=== PATIENT | male | born 1975 | race Caucasian/White ===

== ENCOUNTER 2017-07-27 19:25 | Inpatient (IN) | payer OTHER ==
[2017-07-27 21:44] LABS: Basophils # (Auto) 0.1 K/mm3 (0.0-0.1); Basophils % (Auto) 0.6 % (0.0-1.8); Eosinophils # (Auto) 0.9 K/mm3 (0.0-0.4); Eosinophils % (Auto) 7.7 % (0.0-4.3); Hemoglobin 14.2 gm/dl (11.8-15.2); Lymphocytes # (Auto) 1.6 K/mm3 (1.2-5.4); Mean Corpuscular HGB Conc 33 % (32-34); Mean Corpuscular Hemoglobin 28 pg (28-32); Mean Corpuscular Volume 85 fl (84-94); Monocytes # (Auto) 0.7 K/mm3 (0.0-0.8); Monocytes % (Auto) 6.2 % (0.0-7.3); Platelet Count 293 K/mm3 (140-440); Red Blood Count 5.09 M/mm3 (3.65-5.03); Red Cell Distribution Width 12.9 % (13.2-15.2)
[2017-07-27 22:03] LABS: Alanine Aminotransferase 22 units/L (7-56); Albumin 3.4 g/dL (3.9-5); BUN/Creatinine Ratio 40; Blood Urea Nitrogen 24 mg/dL (9-20); Hemolysis Index 41
--- NOTE | 2017-07-27 23:30 | XRay Report ---
FINAL REPORT PROCEDURE: XR FOOT 3+V RT TECHNIQUE: RIGHT foot radiographs, AP, lateral, and oblique views. CPT 39519 HISTORY: Diabetic wound. COMPARISON: No prior studies are available for comparison. FINDINGS: Fracture (s) and/or Dislocation(s): Possible mild irregularity about the distal fibula, incompletely evaluated. Alignment: Normal . Joint space(s): Lytic areas are seen in the distal phalanx of the 1st toe. Subtle irregularity and lucency about the distal phalanx of the 2nd toe. Lytic changes with widening of the joint space and irregularity seen in the distal 2nd metatarsal and the 2nd metatarsophalangeal joint. Small lytic/erosive changes about the distal phalanx of the 5th toe about the distal interphalangeal joint. Periostitis about the 2nd metatarsal. Subtle periostitis about 3rd and 4th metatarsals. Irregularity and destructive changes of the proximal and middle phalanx of the 3rd toe. There also more focal osteopenia and possible lucency about the distal phalanx of the 3rd toe. Mild diffuse narrowing of the distal interphalangeal joints. Mild narrowing of the 1st metatarsal phalangeal joint. Narrowing of the talonavicular joint. Accessory ossicle about the cuboid. Os trigonum. Soft tissues: Diffuse soft tissue swelling, particularly about 3rd toe. Subtle soft tissue irregularity in this region. Bone mineralization: Normal . Foreign bodies: None . Calcaneal spurring: Plantar and calcaneal spurs. IMPRESSION: Irregularity in destructive changes of the proximal phalanx of the 3rd toe with moderate overlying soft tissue swelling and possible ulceration, concerning for osteomyelitis and cellulitis. Other areas of lytic changes and irregularity about the 1st, 2nd, and 5th toes with associated periostitis of the 2nd-4th metatarsals. Possible associated age indeterminate posttraumatic change of the 2nd metatarsal. Consider infectious/inflammatory process, including arthropathy such as gout or other erosive/proliferative arthropathy. However, cannot exclude destructive process such as osteomyelitis. Consider MRI for further characterization if there is continued clinical concern and if patient has no contraindication to MRI. Possible mild irregularity of the distal fibula, consider correlation with ankle radiographs.
[2017-07-28] MEDS ORDERED: TYLENOL PO ONE (02:51)
--- NOTE | 2017-07-28 02:51 | Emergency Department Report ---
HPI - General Chief Complaint: Wound/Laceration Time Seen by Provider: 07/28/17 01:19 - HPI HPI: 42-year-old male presents to the emergency department with complaint of swelling to the right foot, an ulcerating wound towards the right third toe and some signs of an abscess to the bottom of the foot. Patient says that this all started about one week ago when he had some dry skin on his toe any stride peeling or scraping off. He has a history of diabetes. He presents with a foot dressing intact but is losing some blood. He says there is mild to moderate discomfort. He presents with a low-grade fever and says that he has had some intermittent chills. He does not have a primary care physician. He is a tobacco smoker. He has not taken anything for his symptoms prior to presentation. ED Past Medical Hx - Past Medical History Previous Medical History?: Yes Hx Diabetes: Yes - Surgical History Past Surgical History?: No - Social History Smoking Status: Current Every Day Smoker Substance Use Type: Alcohol, Other ED Review of Systems ROS: Stated complaint: SWELLING AND PAIN IN RIGHT FOOT Other details as noted in HPI Comment: All other systems reviewed and negative Constitutional: chills, fever Eyes: denies: eye pain, eye discharge, vision change ENT: denies: ear pain, throat pain Respiratory: denies: cough, shortness of breath, wheezing Cardiovascular: denies: chest pain, palpitations Gastrointestinal: denies: abdominal pain, nausea, diarrhea Genitourinary: denies: urgency, dysuria Musculoskeletal: joint swelling, arthralgia Skin: lesions, change in color Neurological: denies: headache, numbness Physical Exam - Physical Exam Vital Signs: Vital Signs 07/27/17 07/27/17 07/28/17 20:16 21:12 02:22 Temperature 100.2 F H 100.2 F H Pulse Rate 77 83 Respiratory 16 16 Rate Blood Pressure 126/83 126/83 Blood Pressure [Left] O2 Sat by Pulse 98 98 96 Oximetry 07/28/17 07/28/17 02:30 02:36 Temperature 99.4 F Pulse Rate 76 Respiratory 16 Rate Blood Pressure 124/63 Blood Pressure 114/62 [Left] O2 Sat by Pulse 92 97 Oximetry Physical Exam: GENERAL: The patient is well-developed well-nourished. HENT: Normocephalic. Atraumatic. Patient has moist mucous membranes. EYES: Extraocular motions are intact. Pupils equal reactive to light bilaterally. NECK: Supple. Trachea is midline. CHEST/LUNGS: Clear to auscultation. There is no respiratory distress noted. HEART/CARDIOVASCULAR: Regular. There is no tachycardia. There is no murmur. ABDOMEN: Abdomen is soft, nontender. Patient has normal bowel sounds. There is no abdominal distention. SKIN: Skin is warm and dry. There is moderate nonpitting swelling to the dorsum of the right foot as well as toes. There is some erythema to the second and third digits of the right foot. There is a stage II ulceration seen towards the plantar portion of the third digit with some mild venous oozing. The ball of the foot displays some light coloring to the skin and some fluctuance concerning for an abscess. NEURO: The patient is awake, alert, and oriented. The patient is cooperative. The patient has no focal neurologic deficits. The patient has normal speech. MUSCULOSKELETAL: There is some mild tenderness to palpation regarding the right foot and toes with patient appears to have a cellulitis and some ulceration. There is a palpable dorsalis pedis pulse. There is no limitation range of motion. ED Course Vital Signs 07/27/17 07/27/17 07/28/17 20:16 21:12 02:22 Temperature 100.2 F H 100.2 F H Pulse Rate 77 83 Respiratory 16 16 Rate Blood Pressure 126/83 126/83 Blood Pressure [Left] O2 Sat by Pulse 98 98 96 Oximetry 07/28/17 07/28/17 02:30 02:36 Temperature 99.4 F Pulse Rate 76 Respiratory 16 Rate Blood Pressure 124/63 Blood Pressure 114/62 [Left] O2 Sat by Pulse 92 97 Oximetry ED Medical Decision Making - Lab Data Result diagrams: 07/27/17 21:26 07/27/17 21:26 - Radiology Data Radiology results: report reviewed, image reviewed PROCEDURE: XR FOOT 3+V RT TECHNIQUE: RIGHT foot radiographs, AP, lateral, and oblique views. CPT 61738 HISTORY: Diabetic wound. COMPARISON: No prior studies are available for comparison. FINDINGS: Fracture (s) and/or Dislocation(s): Possible mild irregularity about the distal fibula, incompletely evaluated. Alignment: Normal . Joint space(s): Lytic areas are seen in the distal phalanx of the 1st toe. Subtle irregularity and lucency about the distal phalanx of the 2nd toe. Lytic changes with widening of the joint space and irregularity seen in the distal 2nd metatarsal and the 2nd metatarsophalangeal joint. Small lytic/erosive changes about the distal phalanx of the 5th toe about the distal interphalangeal joint. Periostitis about the 2nd metatarsal. Subtle periostitis about 3rd and 4th metatarsals. Irregularity and destructive changes of the proximal and middle phalanx of the 3rd toe. There also more focal osteopenia and possible lucency about the distal phalanx of the 3rd toe. Mild diffuse narrowing of the distal interphalangeal joints. Mild narrowing of the 1st metatarsal phalangeal joint. Narrowing of the talonavicular joint. Accessory ossicle about the cuboid. Os trigonum. Soft tissues: Diffuse soft tissue swelling, particularly about 3rd toe. Subtle soft tissue irregularity in this region. Bone mineralization: Normal . Foreign bodies: None . Calcaneal spurring: Plantar and calcaneal spurs. IMPRESSION: Irregularity in destructive changes of the proximal phalanx of the 3rd toe with moderate overlying soft tissue swelling and possible ulceration, concerning for osteomyelitis and cellulitis. Other areas of lytic changes and irregularity about the 1st, 2nd, and 5th toes with associated periostitis of the 2nd-4th metatarsals. Possible associated age indeterminate posttraumatic change of the 2nd metatarsal. Consider infectious/inflammatory process, including arthropathy such as gout or other erosive/proliferative arthropathy. However, cannot exclude destructive process such as osteomyelitis. Consider MRI for further characterization if there is continued clinical concern and if patient has no contraindication to MRI. Possible mild irregularity of the distal fibula, consider correlation with ankle radiographs. Transcribed By: TRINA Dictated By: ZBIGNIEW OCASIO MD Electronically Authenticated By: ZBIGNIEW OCASIO MD Signed Date/Time: 07/27/17 3237 EXAM: CT LOWER EXTREMITY RT W CON HISTORY: right foot abscess TECHNIQUE: Routine axial imaging was obtained of the right foot without IV contrast with sagittal and coronal reconstructions. FINDINGS: There are osteolytic destructive changes involving most of the proximal phalanx of the 3rd toe and much of the middle phalanx as well. There is diffuse soft tissue swelling and gas in the soft tissues compatible with osteomyelitis and severe infection. Additional erosive changes are seen involving the bones of the 2nd toe as well as the distal and proximal phalanx of the great toe. Sclerotic changes seen at the level of the distal phalanx of the 5th toe also. There is extensive sclerotic changes with periosteal reaction and thickening involving the shaft of the 2nd metatarsal with arthritic changes of the 2nd metatarsal phalangeal joint. The midfoot does not show any acute changes. There are spurs along the posterior and plantar margin of the calcaneus. The soft tissues overall reveal generalized edema without focal abscess. IMPRESSION: Generalized edema around the foot suggesting cellulitis. No evidence of soft tissue abscess otherwise. Extensive osteomyelitis changes with cellulitis involving the entire 3rd toe as described. Additional cortical changes involving 1st, 2nd, and 5th toes as described. How much of this is on acute versus chronic basis is uncertain. Sclerotic changes involving much of the 2nd metatarsal with destructive changes of the 2nd metatarsophalangeal joint. How much of these findings are related to acute versus chronic osteomyelitis is uncertain. MRI of the foot is recommended for better evaluation for the extent of marrow edema. Calcaneal spurs noted. Transcribed By: ARACELI Dictated By: GABBY CARBALLO MD Electronically Authenticated By: GABBY CARBALLO MD Signed Date/Time: 07/28/17 5987 - Medical Decision Making Patient presents with some swelling, bleeding from and signs of infection to the right foot and middle toes. The patient is diabetic and a tobacco smoker. He presents with a low-grade fever. Labs show a mild leukocytosis of 13,000. X -ray showed some concern for cellulitis and/or osteomyelitis. A CT scan was done with IV contrast as I had concern for a plantar abscess as well, but there was no abscess found. However it does appear that there is osteomyelitis of the third toe and some generalized cellulitis of the feet and toes. Patient was started on vancomycin and Levaquin and will be admitted to the hospital for further evaluation and treatment and was accepted for admission by the hospitalist, Dr. White. - Differential Diagnosis cellulitis, osteomyelitis, abscess, venous stasis Critical Care Time: No Critical care attestation.: If time is entered above; I have spent that time in minutes in the direct care of this critically ill patient, excluding procedure time. ED Disposition Clinical Impression: Osteomyelitis of toe of right foot, Cellulitis of right foot Diabetic foot ulcer Qualifiers: Diabetic foot ulcer location: unspecified part of foot Diabetes mellitus type: type 1 Laterality: right Non-pressure ulcer stage: unspecified non-pressure ulcer stage Qualified Code(s): E10.621 - Type 1 diabetes mellitus with foot ulcer; L97.519 - Non-pressure chronic ulcer of other part of right foot with unspecified severity Disposition: OP ADMIT IP TO THIS HOSP Is pt being admited?: Yes Condition: Fair Time of Disposition: 07:14
[2017-07-28] MEDS ORDERED: VANCOMYCIN/NS 1 GM/250 ML 1 GM/250 ML BAG IV SCH (03:00)
--- NOTE | 2017-07-28 03:30 | Cat Scan Report ---
FINAL REPORT EXAM: CT LOWER EXTREMITY RT W CON HISTORY: right foot abscess TECHNIQUE: Routine axial imaging was obtained of the right foot without IV contrast with sagittal and coronal reconstructions. FINDINGS: There are osteolytic destructive changes involving most of the proximal phalanx of the 3rd toe and much of the middle phalanx as well. There is diffuse soft tissue swelling and gas in the soft tissues compatible with osteomyelitis and severe infection. Additional erosive changes are seen involving the bones of the 2nd toe as well as the distal and proximal phalanx of the great toe. Sclerotic changes seen at the level of the distal phalanx of the 5th toe also. There is extensive sclerotic changes with periosteal reaction and thickening involving the shaft of the 2nd metatarsal with arthritic changes of the 2nd metatarsal phalangeal joint. The midfoot does not show any acute changes. There are spurs along the posterior and plantar margin of the calcaneus. The soft tissues overall reveal generalized edema without focal abscess. IMPRESSION: Generalized edema around the foot suggesting cellulitis. No evidence of soft tissue abscess otherwise. Extensive osteomyelitis changes with cellulitis involving the entire 3rd toe as described. Additional cortical changes involving 1st, 2nd, and 5th toes as described. How much of this is on acute versus chronic basis is uncertain. Sclerotic changes involving much of the 2nd metatarsal with destructive changes of the 2nd metatarsophalangeal joint. How much of these findings are related to acute versus chronic osteomyelitis is uncertain. MRI of the foot is recommended for better evaluation for the extent of marrow edema. Calcaneal spurs noted.
[2017-07-28] MEDS ORDERED: LEVAQUIN 750MG/150ML 750 MG/150 ML BAG IV ONE (03:41)
[2017-07-28] MEDS ORDERED: ZOFRAN IV PRN (05:30)
[2017-07-28] MEDS: PERCOCET 5/325 PO PRN (10:57)
[2017-07-28] MEDS ORDERED: D50W (25GM) Syringe IV PRN (12:04)
[2017-07-28] MEDS ORDERED: VANCOMYCIN 1,750 MG in NACL 0.9% 500 ML 500 ML IV ONE (12:30)
[2017-07-28] MEDS ORDERED: VANCOMYCIN PHARMACY TO DOSE IV SCH (13:00)
[2017-07-28] MEDS: HumaLOG SUB-Q SCH ×3 (13:40→23:30)
[2017-07-28] MEDS: HABITROL TD PRN (13:56)
[2017-07-28] MEDS ORDERED: NACL 0.9% 500 ML 500 ML IV ONE (15:07)
--- NOTE | 2017-07-28 15:14 | History and Physical Report ---
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 Pitts is 42 yo [place] speaking man with history of tobacco dependency and type 2 DM who presents with severe constant throbbing radiation up right foot pains that started about 2 days ago. He injured the foot a couple weeks ago on concrete. He has subjective chills and fevers. He denies cp, sob or any other symptoms. He drinks one 12oz beer every other day. PMH: as hpi PSH: right hand surgery SH: tob 1ppd, etoh use, no illegal drugs FH: mother has dm htn ROS: Constitutional: + fever, malaise ENT: denies: throat or neck pain Respiratory: denies: cough, shortness of breath Cardiovascular: denies: chest pain Endocrine: denies unexplained weight loss or gain Gastrointestinal: denies: abdominal pain, nausea Genitourinary: denies: dysuria Rectal: denies no incontinence, no bleeding, no itching, no discharge Musculoskeletal: + swelling right foot, myaglia, muscle weakness Skin: right foot odor Neurological: denies: headache Hematological/Lymphatic: denies: easy bleeding or easy bruising Allergic/Immunologic: no urticaria, no allergic rhinitis, no anaphylaxis Psych: denies sadness or hopelessness, SI/HI I Medications and Allergies Allergies Allergy/AdvReac Type Severity Reaction Status Date / Time No Known Allergies Allergy Verified 07/28/17 02:16 Active Meds: Active Medications Dextrose (D50w (25gm) Syringe) 50 ml IV PRN PRN PRN Reason: Hypoglycemia Vancomycin HCl 1,500 mg/ (Sodium Chloride) 515 mls @ 333.333 mls/hr IV Q12H CHARLES Levofloxacin/Dextrose (Levaquin 750mg/150ml) 750 mg in 150 mls @ 100 mls/hr IV Q24HR CHARLES; Protocol Sodium Chloride (Nacl 0.9% 1000 Ml) 1,000 mls @ 125 mls/hr IV DIRECT CHARLES Sodium Chloride (Nacl 0.9% 500 Ml) 500 mls @ 999 mls/hr IV ONCE ONE Stop: 07/28/17 15:37 Insulin Human Lispro (Humalog) 0 unit SUB-Q ACHS CHARLES; Protocol Last Admin: 07/28/17 13:40 Dose: 1 unit Nicotine (Habitrol) 21 mg TD QDAY PRN PRN Reason: Nicotine Cravings Last Admin: 07/28/17 13:56 Dose: 21 mg Ondansetron HCl (Zofran) 4 mg IV Q4H PRN PRN Reason: N/V IF NPO AND NO IV ACCESS Oxycodone/Acetaminophen (Percocet 5/325) 1 tab PO Q6H PRN PRN Reason: Pain, Moderate (4-6) Last Admin: 07/28/17 10:57 Dose: 1 tab Vancomycin HCl (Vancomycin Pharmacy To Dose) 1 each IV PKCONSULT CHARLES; Protocol Exam - Physical Exam Narrative exam: GEN: WDWN, NAD, Awake, Alert, Orientated x 3 HEENT: NCAT, EOMI, PERRL, OP Clear NECK: supple, no adenopathy, no thyromegaly, no JVD CVS/HEART: RRR, normal S1S2, pulses present bilaterally CHEST/LUNGS: CTA B, Symmetrical chest expansion, good air entry bilaterally GI/Abdomen: soft, NTND, good bowel sounds, no guarding or rebound /Bladder: no suprapubic tenderness, no CVA or paraspinal tenderness EXT/Skin: right foot is swollen, red, erythematous to mid calf, warm and tender with multiple toes with ulceration, purulent material MSK: FROM x 4 Neuro: CN 2-12 grossly intact, no new focal deficits Psych: calm - Constitutional Vitals: Temp Pulse Resp BP Pulse Ox 97.6 F 80 18 94/53 94 07/28/17 09:26 07/28/17 09:26 07/28/17 09:26 07/28/17 09:26 07/28/17 09:16 Results - Labs CBC & Chem 7: 07/27/17 21:26 07/27/17 21:26 Labs: Abnormal lab results 07/27/17 07/27/17 07/28/17 Range/Units 21:26 21:26 09:28 WBC 11.3 H (4.5-11.0) K/mm3 RBC 5.09 H (3.65-5.03) M/mm3 RDW 12.9 L (13.2-15.2) % Eos % (Auto) 7.7 H (0.0-4.3) % Eos # 0.9 H (0.0-0.4) K/mm3 Seg Neutrophils % 71.5 H (40.0-70.0) % Seg Neutrophils # 8.1 H (1.8-7.7) K/mm3 BUN 24 H (9-20) mg/dL Creatinine 0.6 L (0.8-1.5) mg/dL Glucose 158 H (75-100) mg/dL POC Glucose 181 H (70-105) Albumin 3.4 L (3.9-5) g/dL 07/28/17 Range/Units 11:48 WBC (4.5-11.0) K/mm3 RBC (3.65-5.03) M/mm3 RDW (13.2-15.2) % Eos % (Auto) (0.0-4.3) % Eos # (0.0-0.4) K/mm3 Seg Neutrophils % (40.0-70.0) % Seg Neutrophils # (1.8-7.7) K/mm3 BUN (9-20) mg/dL Creatinine (0.8-1.5) mg/dL Glucose (75-100) mg/dL POC Glucose 162 H (70-105) Albumin (3.9-5) g/dL Assessment and Plan Mr. Pitts is 42 yo [place] speaking man with history of tobacco dependency and type 2 DM who presents with severe constant throbbing radiation up right foot pains that started about 2 days ago. He injured the foot a couple weeks ago on concrete. He has subjective chills and fevers. He denies cp, sob or any other symptoms. Temp 100.2, WBC 11.3 * 3v Right foot xray impression: Irregularity in destructive changes of the proximal phalanx of the 3rd toe with moderate overlying soft tissue swelling and possible ulceration, concerning for osteomyelitis and cellulitis. Other areas of lytic changes and irregularity about the 1st, 2nd, and 5th toes with associated periostitis of the 2nd-4th metatarsals. Possible associated age indeterminate posttraumatic change of the 2nd metatarsal. Consider infectious/ inflammatory process, including arthropathy such as gout or other erosive/ proliferative arthropathy. However, cannot exclude destructive process such as osteomyelitis. Consider MRI for further characterization if there is continued clinical concern and if patient has no contraindication to MRI. Possible mild irregularity of the distal fibula, consider correlation with ankle radiographs. * CT lower right extremity with IV contrast IMPRESSION: Generalized edema around the foot suggesting cellulitis. No evidence of soft tissue abscess otherwise. Extensive osteomyelitis changes with cellulitis involving the entire 3rd toe as described. Additional cortical changes involving 1st, 2nd, and 5th toes as described. How much of this is on acute versus chronic basis is uncertain. Sclerotic changes involving much of the 2nd metatarsal with destructive changes of the 2nd metatarsophalangeal joint. How much of these findings are related to acute versus chronic osteomyelitis is uncertain. MRI of the foot is recommended for better evaluation for the extent of marrow edema. Calcaneal spurs noted. -Acute right foot osteomyelitis: consult Ortho when they are available, treat with iv abx, get arterial doppler -Acute right foot cellulitis: consult wound care, and Infectious disease -Tobacco dependency: advised pt to stop, ordered nicotine patch -Hypotension with dehydration: stat iv fluid resuscitation bolus then nss ivf -DVT prophylaxis: sq heparin CCT 34 minutes
[2017-07-28] MEDS ORDERED: HumaLOG SUB-Q SCH (16:30)
--- NOTE | 2017-07-28 18:22 | Consultation ---
History of Present Illness - Reason for Consult Consult date: 07/28/17 right foot infection ? osteo Requesting physician: DURGA [place] - History of Present Illness 42 y/o male with history of DM and tobacco abuse; admitted on 07/27/17 due to 2 week-history of right foot edema, tenderness and ulceration on 3rd toe. Reports he injured the foot with concrete 2 weeks ago. Reports subjective fever. He was not checking his glucose at home. No PCP. In the ED, temp 100.2, HR 77, R 16, BP 126/83. WBC 11.3. Hg 14.2. Plat 293. Creat 0.6. Lactate 1.3. XR foot showed irregularity in destructive changes of the proximal phalanx of the 3rd toe with moderate overlying soft tissue swelling and possible ulceration, concerning for osteomyelitis and cellulitis. Other areas of lytic changes and irregularity about the 1st, 2nd, and 5th toes with associated periostitis of the 2nd-4th metatarsals. Possible associated age indeterminate posttraumatic change of the 2nd metatarsal. CT lower showed generalized edema around the foot suggesting cellulitis. Extensive osteomyelitis changes with cellulitis involving the entire 3rd toe as described. Additional cortical changes involving 1st, 2nd, and 5th toes as described. How much of this is on acute versus chronic basis is uncertain. Sclerotic changes involving much of the 2nd metatarsal with destructive changes of the 2nd metatarsophalangeal joint. How much of these findings are related to acute versus chronic osteomyelitis is uncertain. MRI of the foot is recommended for better evaluation for the extent of marrow edema. Calcaneal spurs noted. Micro: none Abx: levaquin vanco Medications and Allergies Allergies Allergy/AdvReac Type Severity Reaction Status Date / Time No Known Allergies Allergy Verified 07/28/17 02:16 Active Meds: Active Medications Dextrose (D50w (25gm) Syringe) 50 ml IV PRN PRN PRN Reason: Hypoglycemia Vancomycin HCl 1,500 mg/ (Sodium Chloride) 515 mls @ 333.333 mls/hr IV Q12H CHARLES Levofloxacin/Dextrose (Levaquin 750mg/150ml) 750 mg in 150 mls @ 100 mls/hr IV Q24HR CHARLES; Protocol Sodium Chloride (Nacl 0.9% 1000 Ml) 1,000 mls @ 125 mls/hr IV DIRECT CHARLES Insulin Human Lispro (Humalog) 0 unit SUB-Q ACHS CHARLES; Protocol Last Admin: 07/28/17 13:40 Dose: 1 unit Nicotine (Habitrol) 21 mg TD QDAY PRN PRN Reason: Nicotine Cravings Last Admin: 07/28/17 13:56 Dose: 21 mg Ondansetron HCl (Zofran) 4 mg IV Q4H PRN PRN Reason: N/V IF NPO AND NO IV ACCESS Oxycodone/Acetaminophen (Percocet 5/325) 1 tab PO Q6H PRN PRN Reason: Pain, Moderate (4-6) Last Admin: 07/28/17 10:57 Dose: 1 tab Vancomycin HCl (Vancomycin Pharmacy To Dose) 1 each IV PKCONSULT CHARLES; Protocol Review of Systems All systems: negative (as per HPI) Physical Examination - Physical Exam Narrative exam: Alert in NAD NC AT [place], clear OP Neck no LN Lungs CTA [place]anza CV RRR Abd soft nt Ext extensive edema, skin sloughing right 3rd toe and mid foot - Constitutional Vitals: Vital Signs Temp Pulse Resp BP Pulse Ox 97.6 F 80 18 94/53 94 07/28/17 09:26 07/28/17 09:26 07/28/17 09:26 07/28/17 09:26 07/28/17 09:16 Temperature -Last 24 Hours Temperature 97.6 F Temperature 99.4 F Temperature 100.2 F Temperature 100.2 F Results - Labs CBC & Chem 7: 07/27/17 21:26 07/27/17 21:26 Labs: Abnormal lab results 07/27/17 07/27/17 07/28/17 Range/Units 21:26 21:26 09:28 WBC 11.3 H (4.5-11.0) K/mm3 RBC 5.09 H (3.65-5.03) M/mm3 RDW 12.9 L (13.2-15.2) % Eos % (Auto) 7.7 H (0.0-4.3) % Eos # 0.9 H (0.0-0.4) K/mm3 Seg Neutrophils % 71.5 H (40.0-70.0) % Seg Neutrophils # 8.1 H (1.8-7.7) K/mm3 BUN 24 H (9-20) mg/dL Creatinine 0.6 L (0.8-1.5) mg/dL Glucose 158 H (75-100) mg/dL POC Glucose 181 H (70-105) Albumin 3.4 L (3.9-5) g/dL 07/28/17 Range/Units 11:48 WBC (4.5-11.0) K/mm3 RBC (3.65-5.03) M/mm3 RDW (13.2-15.2) % Eos % (Auto) (0.0-4.3) % Eos # (0.0-0.4) K/mm3 Seg Neutrophils % (40.0-70.0) % Seg Neutrophils # (1.8-7.7) K/mm3 BUN (9-20) mg/dL Creatinine (0.8-1.5) mg/dL Glucose (75-100) mg/dL POC Glucose 162 H (70-105) Albumin (3.9-5) g/dL Assessment and Plan Assessment: 1) Sepsis: POA with fever, leukocytosis, etio. right foot infection 2) Right diabetic foot infection with cellulitis, possible abscess and osteomyelitis 3) DM 4) Tobacco abuse -XR foot showed irregularity in destructive changes of the proximal phalanx of the 3rd toe with moderate overlying soft tissue swelling and possible ulceration, concerning for osteomyelitis and cellulitis. Other areas of lytic changes and irregularity about the 1st, 2nd, and 5th toes with associated periostitis of the 2nd-4th metatarsals. Possible associated age indeterminate posttraumatic change of the 2nd metatarsal. -CT lower showed generalized edema around the foot suggesting cellulitis. Extensive osteomyelitis changes with cellulitis involving the entire 3rd toe as described. Additional cortical changes involving 1st, 2nd, and 5th toes as described. How much of this is on acute versus chronic basis is uncertain. Sclerotic changes involving much of the 2nd metatarsal with destructive changes of the 2nd metatarsophalangeal joint. How much of these findings are related to acute versus chronic osteomyelitis is uncertain. Plan: -podiatry or ortho consult -deep wound cultures -arterial dopplers -CRP -continue vancomycin -add unasyn -stop levaquin -needs 6 weeks IV abx if not amputation Jimenez
[2017-07-28] MEDS: NACL 0.9% 1000 ML 1,000 ML IV SCH (18:49)
[2017-07-28] MEDS: UNASYN/NS 3 GM/100 ML 3 GM/100 ML BAG IV SCH ×2 (23:37→23:45)
[2017-07-29] MEDS: VANCOMYCIN 1,500 MG in NACL 0.9% 500 ML 500 ML IV SCH ×2 (01:09→12:00)
[2017-07-29] MEDS: NACL 0.9% 1000 ML 1,000 ML IV SCH ×2 (06:18→17:21)
[2017-07-29] MEDS: UNASYN/NS 3 GM/100 ML 3 GM/100 ML BAG IV SCH ×4 (06:19→23:45)
[2017-07-29] MEDS: HumaLOG SUB-Q SCH ×3 (07:34→16:42)
[2017-07-29 08:09] LABS: Hematocrit 37.5 % (35.5-45.6); Hemoglobin 12.6 gm/dl (11.8-15.2); Mean Corpuscular HGB Conc 34 % (32-34); Mean Corpuscular Hemoglobin 28 pg (28-32); Mean Corpuscular Volume 84 fl (84-94); Platelet Count 251 K/mm3 (140-440); Red Blood Count 4.48 M/mm3 (3.65-5.03); Red Cell Distribution Width 12.8 % (13.2-15.2)
[2017-07-29 08:28] LABS: BUN/Creatinine Ratio 25; Blood Urea Nitrogen 15 mg/dL (9-20); Calcium 8.3 mg/dL (8.4-10.2); Hemolysis Index 1
[2017-07-29] MEDS ORDERED: LEVAQUIN 750MG/150ML 750 MG/150 ML BAG IV SCH (10:00)
--- NOTE | 2017-07-29 11:49 | Progress Note ---
Assessment and Plan Assessment and plan: Mr. Pitts is 42 yo Sami speaking man with history of tobacco dependency and type 2 DM who presents with severe constant throbbing radiation up right foot pains that started about 2 days ago. He injured the foot a couple weeks ago on concrete. He has subjective chills and fevers. He denies cp, sob or any other symptoms. Temp 100.2, WBC 11.3 * 3v Right foot xray impression: Irregularity in destructive changes of the proximal phalanx of the 3rd toe with moderate overlying soft tissue swelling and possible ulceration, concerning for osteomyelitis and cellulitis. Other areas of lytic changes and irregularity about the 1st, 2nd, and 5th toes with associated periostitis of the 2nd-4th metatarsals. Possible associated age indeterminate posttraumatic change of the 2nd metatarsal. Consider infectious/ inflammatory process, including arthropathy such as gout or other erosive/ proliferative arthropathy. However, cannot exclude destructive process such as osteomyelitis. Consider MRI for further characterization if there is continued clinical concern and if patient has no contraindication to MRI. Possible mild irregularity of the distal fibula, consider correlation with ankle radiographs. * CT lower right extremity with IV contrast IMPRESSION: Generalized edema around the foot suggesting cellulitis. No evidence of soft tissue abscess otherwise. Extensive osteomyelitis changes with cellulitis involving the entire 3rd toe as described. Additional cortical changes involving 1st, 2nd, and 5th toes as described. How much of this is on acute versus chronic basis is uncertain. Sclerotic changes involving much of the 2nd metatarsal with destructive changes of the 2nd metatarsophalangeal joint. How much of these findings are related to acute versus chronic osteomyelitis is uncertain. MRI of the foot is recommended for better evaluation for the extent of marrow edema. Calcaneal spurs noted. -Acute right foot osteomyelitis: consulted Ortho, evaluation pending, treat with iv abx, arterial doppler pending -Acute right foot cellulitis: consult wound care, and Infectious disease -Tobacco dependency: advised pt to stop, ordered nicotine patch -Hypotension with dehydration, improved: continue ivf -DVT prophylaxis: sq heparin History Interval history: Sami language line used. Patient was seen and examined. Follow-up on current diagnosis of right foot pains still present. Overnight uneventful. Patient denies any chest pain, shortness breath, nausea/vomiting or severe headaches. Imaging, nursing note, chart, labs and old chart reviewed. Discussed with patient. Hospitalist Physical - Physical exam Narrative exam: GEN: WDWN, NAD, Awake, Alert, Orientated x 3 HEENT: NCAT, EOMI, PERRL, OP Clear NECK: supple, no adenopathy, no thyromegaly, no JVD CVS/HEART: RRR, normal S1S2, pulses present bilaterally CHEST/LUNGS: CTA B, Symmetrical chest expansion, good air entry bilaterally GI/Abdomen: soft, NTND, good bowel sounds, no guarding or rebound /Bladder: no suprapubic tenderness, no CVA or paraspinal tenderness EXT/Skin: right foot is swollen, red, erythematous to mid calf, warm and tender with multiple toes with ulceration, purulent material MSK: FROM x 4 Neuro: CN 2-12 grossly intact, no new focal deficits Psych: calm - Constitutional Vitals: Temp Pulse Resp BP Pulse Ox 97.9 F 67 18 114/63 96 07/29/17 08:00 07/29/17 08:00 07/29/17 08:00 07/29/17 08:00 07/29/17 08:00 Results - Labs CBC & Chem 7: 07/29/17 05:47 07/29/17 05:47 Labs: Laboratory Last Values WBC 8.5 K/mm3 (4.5-11.0) 07/29/17 05:47 RBC 4.48 M/mm3 (3.65-5.03) 07/29/17 05:47 Hgb 12.6 gm/dl (11.8-15.2) 07/29/17 05:47 Hct 37.5 % (35.5-45.6) 07/29/17 05:47 MCV 84 fl (84-94) 07/29/17 05:47 MCH 28 pg (28-32) 07/29/17 05:47 MCHC 34 % (32-34) 07/29/17 05:47 RDW 12.8 % (13.2-15.2) L 07/29/17 05:47 Plt Count 251 K/mm3 (140-440) 07/29/17 05:47 Lymph % (Auto) 14.0 % (13.4-35.0) 07/27/17 21:26 [place] % (Auto) 6.2 % (0.0-7.3) 07/27/17 21:26 Eos % (Auto) 7.7 % (0.0-4.3) H 07/27/17 21: Baso % (Auto) 0.6 % (0.0-1.8) 07/27/17 21: Lymph # 1.6 K/mm3 (1.2-5.4) 07/27/17 21: [place] # 0.7 K/mm3 (0.0-0.8) 07/27/17 21: Eos # 0.9 K/mm3 (0.0-0.4) H 07/27/17 21: Baso # 0.1 K/mm3 (0.0-0.1) 07/27/17 21: Seg Neutrophils % 71.5 % (40.0-70.0) H 07/27/17 21: Seg Neutrophils # 8.1 K/mm3 (1.8-7.7) H 07/27/17 21:26 VBG pH 7.348 (7.320-7.420) 07/27/17 21:26 Sodium 142 mmol/L (137-145) 07/29/17 05:47 Potassium 3.5 mmol/L (3.6-5.0) L D 07/29/17 05:47 Chloride 104.5 mmol/L (98-107) 07/29/17 05:47 Carbon Dioxide 27 mmol/L (22-30) 07/29/17 05:47 Anion Gap 14 mmol/L 07/29/17 05:47 BUN 15 mg/dL (9-20) 07/29/17 05:47 Creatinine 0.6 mg/dL (0.8-1.5) L 07/29/17 05:47 Estimated GFR > 60 ml/min 07/29/17 05:47 BUN/Creatinine Ratio 25 % 07/29/17 05:47 Glucose 122 mg/dL (75-100) H 07/29/17 05:47 POC Glucose 128 (70-105) H 07/29/17 07:08 Lactic Acid 1.30 mmol/L (0.7-2.0) 07/28/17 03:26 Calcium 8.3 mg/dL (8.4-10.2) L 07/29/17 05:47 Total Bilirubin 0.30 mg/dL (0.1-1.2) 07/27/17 21:26 AST 21 units/L (5-40) 07/27/17 21:26 ALT 22 units/L (7-56) 07/27/17 21:26 Alkaline Phosphatase 126 units/L (35-129) 07/27/17 21:26 C-Reactive Protein 4.40 mg/dL (0.00-1.30) H 07/28/17 18:42 Total Protein 8.1 g/dL (6.3-8.2) 07/27/17 21:26 Albumin 3.4 g/dL (3.9-5) L 07/27/17 21:26 Albumin/Globulin Ratio 0.7 % 07/27/17 21:26
[2017-07-29] MEDS ORDERED: K-DUR PO ONE (12:00)
[2017-07-29] MEDS ORDERED: PNEUMOVAX 23 IM ONE (12:00)
[2017-07-29] MEDS ORDERED: Fluarix Quad 2017-2018(36 MOS+ IM ONE (12:00)
--- NOTE | 2017-07-29 12:28 | Consultation ---
History of Present Illness - HPI Consult date: 07/29/17 Consult reason: joint pain History of present illness: 42 y/o male with c/o right foot pain and swelling x 2 wks, states injured when something fell onto his foot at work...hx of previous forefoot infections in past, hx DM x yrs Medications and Allergies Allergies Allergy/AdvReac Type Severity Reaction Status Date / Time No Known Allergies Allergy Verified 07/28/17 02:16 Home Medications Medication Instructions Recorded Confirmed Last Taken Type No Known Home Medications [No 07/29/17 07/29/17 Unknown History Reported Home Medications] Active Meds: Active Medications Dextrose (D50w (25gm) Syringe) 50 ml IV PRN PRN PRN Reason: Hypoglycemia Vancomycin HCl 1,500 mg/ (Sodium Chloride) 515 mls @ 333.333 mls/hr IV Q12H CHARLES Last Admin: 07/29/17 12:00 Dose: 333.333 mls/hr Sodium Chloride (Nacl 0.9% 1000 Ml) 1,000 mls @ 125 mls/hr IV DIRECT CHARLES Last Admin: 07/29/17 06:18 Dose: 125 mls/hr Ampicillin Sodium/Sulbactam Sodium (Unasyn/Ns 3 Gm/100 Ml) 3 gm in 100 mls @ 200 mls/hr IV Q6HR CHARLES; Protocol Last Admin: 07/29/17 11:59 Dose: 200 mls/hr Insulin Human Lispro (Humalog) 0 unit SUB-Q ACHS CHARLES; Protocol Last Admin: 07/29/17 07:34 Dose: Not Given Nicotine (Habitrol) 21 mg TD QDAY PRN PRN Reason: Nicotine Cravings Last Admin: 07/28/17 13:56 Dose: 21 mg Ondansetron HCl (Zofran) 4 mg IV Q4H PRN PRN Reason: N/V IF NPO AND NO IV ACCESS Oxycodone/Acetaminophen (Percocet 5/325) 1 tab PO Q6H PRN PRN Reason: Pain, Moderate (4-6) Last Admin: 07/28/17 10:57 Dose: 1 tab Vancomycin HCl (Vancomycin Pharmacy To Dose) 1 each IV PKCONSULT CHARLES; Protocol Assessment and Plan infected right 3rd toe continue IVAB and observation
[2017-07-29] MEDS: PERCOCET 5/325 PO PRN (18:05)
[2017-07-29] MEDS: HABITROL TD PRN (18:06)
[2017-07-30] MEDS: VANCOMYCIN 1,500 MG in NACL 0.9% 500 ML 500 ML IV SCH ×2 (01:15→16:34)
[2017-07-30] MEDS: NACL 0.9% 1000 ML 1,000 ML IV SCH ×2 (04:51→13:09)
[2017-07-30] MEDS: UNASYN/NS 3 GM/100 ML 3 GM/100 ML BAG IV SCH ×3 (05:20→21:16)
[2017-07-30] MEDS: HumaLOG SUB-Q SCH ×5 (08:02→22:15)
[2017-07-30 08:15] LABS: Hematocrit 37.1 % (35.5-45.6); Hemoglobin 12.3 gm/dl (11.8-15.2); Mean Corpuscular HGB Conc 33 % (32-34); Mean Corpuscular Hemoglobin 27 pg (28-32); Mean Corpuscular Volume 83 fl (84-94); Platelet Count 250 K/mm3 (140-440); Red Blood Count 4.48 M/mm3 (3.65-5.03); Red Cell Distribution Width 12.8 % (13.2-15.2)
[2017-07-30 08:42] LABS: BUN/Creatinine Ratio 18; Blood Urea Nitrogen 11 mg/dL (9-20); Calcium 8.2 mg/dL (8.4-10.2); Hemolysis Index 2
[2017-07-30] MEDS: HABITROL TD SCH (10:14)
--- NOTE | 2017-07-30 11:42 | Progress Note ---
Assessment and Plan Assessment and plan: Mr. Pitts is 42 yo Luxembourgish speaking man with history of tobacco dependency and type 2 DM who presents with severe constant throbbing radiation up right foot pains that started about 2 days ago. He injured the foot a couple weeks ago on concrete. He has subjective chills and fevers. He denies cp, sob or any other symptoms. Temp 100.2, WBC 11.3 * 3v Right foot xray impression: Irregularity in destructive changes of the proximal phalanx of the 3rd toe with moderate overlying soft tissue swelling and possible ulceration, concerning for osteomyelitis and cellulitis. Other areas of lytic changes and irregularity about the 1st, 2nd, and 5th toes with associated periostitis of the 2nd-4th metatarsals. Possible associated age indeterminate posttraumatic change of the 2nd metatarsal. Consider infectious/ inflammatory process, including arthropathy such as gout or other erosive/ proliferative arthropathy. However, cannot exclude destructive process such as osteomyelitis. Consider MRI for further characterization if there is continued clinical concern and if patient has no contraindication to MRI. Possible mild irregularity of the distal fibula, consider correlation with ankle radiographs. * CT lower right extremity with IV contrast IMPRESSION: Generalized edema around the foot suggesting cellulitis. No evidence of soft tissue abscess otherwise. Extensive osteomyelitis changes with cellulitis involving the entire 3rd toe as described. Additional cortical changes involving 1st, 2nd, and 5th toes as described. How much of this is on acute versus chronic basis is uncertain. Sclerotic changes involving much of the 2nd metatarsal with destructive changes of the 2nd metatarsophalangeal joint. How much of these findings are related to acute versus chronic osteomyelitis is uncertain. MRI of the foot is recommended for better evaluation for the extent of marrow edema. Calcaneal spurs noted. -Acute right foot osteomyelitis: Ortho evaluated, treat with iv abx, arterial doppler pending -Acute right foot cellulitis: consult wound care, and Infectious disease -Tobacco dependency: advised pt to stop, ordered nicotine patch -Hypotension with dehydration, improved: continue ivf -Hypokalemia: replace and repeat in am -DVT prophylaxis: sq heparin Ortho wants to observe on iv abx, will consult wound care Physician Arterial dopplers pending, History Interval history: [place]ish language line used. Patient was seen and examined. Follow-up on current diagnosis of right foot pains still present. Overnight uneventful. Patient denies any chest pain, shortness breath, nausea/vomiting or severe headaches. Imaging, nursing note, chart, labs and old chart reviewed. Discussed with patient. Hospitalist Physical - Physical exam Narrative exam: GEN: WDWN, NAD, Awake, Alert, Orientated x 3 HEENT: NCAT, EOMI, PERRL, OP Clear NECK: supple, no adenopathy, no thyromegaly, no JVD CVS/HEART: RRR, normal S1S2, pulses present bilaterally CHEST/LUNGS: CTA B, Symmetrical chest expansion, good air entry bilaterally GI/Abdomen: soft, NTND, good bowel sounds, no guarding or rebound /Bladder: no suprapubic tenderness, no CVA or paraspinal tenderness EXT/Skin: right foot is swollen, red, erythematous to mid calf, warm and tender with multiple toes with ulceration, purulent material MSK: FROM x 4 Neuro: CN 2-12 grossly intact, no new focal deficits Psych: calm - Constitutional Vitals: Temp Pulse Resp BP Pulse Ox 99.1 F 63 20 126/70 98 07/30/17 07:36 07/30/17 07:36 07/30/17 07:36 07/30/17 07:36 07/30/17 07:36 Results - Labs CBC & Chem 7: 07/30/17 07:20 07/30/17 07:20 Labs: Laboratory Last Values WBC 9.2 K/mm3 (4.5-11.0) 07/30/17 07:20 RBC 4.48 M/mm3 (3.65-5.03) 07/30/17 07:20 Hgb 12.3 gm/dl (11.8-15.2) 07/30/17 07:20 Hct 37.1 % (35.5-45.6) 07/30/17 07:20 MCV 83 fl (84-94) L 07/30/17 07:20 MCH 27 pg (28-32) L 07/30/17 07:20 MCHC 33 % (32-34) 07/30/17 07:20 RDW 12.8 % (13.2-15.2) L 07/30/17 07:20 Plt Count 250 K/mm3 (140-440) 07/30/17 07:20 Lymph % (Auto) 14.0 % (13.4-35.0) 07/27/17 21: [place] % (Auto) 6.2 % (0.0-7.3) 07/27/17 21: Eos % (Auto) 7.7 % (0.0-4.3) H 07/27/17 21: Baso % (Auto) 0.6 % (0.0-1.8) 07/27/17 21: Lymph # 1.6 K/mm3 (1.2-5.4) 07/27/17 21: [place] # 0.7 K/mm3 (0.0-0.8) 07/27/17 21: Eos # 0.9 K/mm3 (0.0-0.4) H 07/27/17 21: Baso # 0.1 K/mm3 (0.0-0.1) 07/27/17 21: Seg Neutrophils % 71.5 % (40.0-70.0) H 07/27/17 21: Seg Neutrophils # 8.1 K/mm3 (1.8-7.7) H 07/27/17 21:26 VBG pH 7.348 (7.320-7.420) 07/27/17 21:26 Sodium 144 mmol/L (137-145) 07/30/17 07:20 Potassium 3.5 mmol/L (3.6-5.0) L 07/30/17 07:20 Chloride 105.1 mmol/L (98-107) 07/30/17 07:20 Carbon Dioxide 29 mmol/L (22-30) 07/30/17 07:20 Anion Gap 13 mmol/L 07/30/17 07:20 BUN 11 mg/dL (9-20) 07/30/17 07:20 Creatinine 0.6 mg/dL (0.8-1.5) L 07/30/17 07:20 Estimated GFR > 60 ml/min 07/30/17 07:20 BUN/Creatinine Ratio 18 % 07/30/17 07:20 Glucose 112 mg/dL (75-100) H 07/30/17 07:20 POC Glucose 103 (70-105) 07/30/17 04:35 Lactic Acid 1.30 mmol/L (0.7-2.0) 07/28/17 03:26 Calcium 8.2 mg/dL (8.4-10.2) L 07/30/17 07:20 Total Bilirubin 0.30 mg/dL (0.1-1.2) 07/27/17 21:26 AST 21 units/L (5-40) 07/27/17 21:26 ALT 22 units/L (7-56) 07/27/17 21:26 Alkaline Phosphatase 126 units/L (35-129) 07/27/17 21:26 C-Reactive Protein 4.40 mg/dL (0.00-1.30) H 07/28/17 18:42 Total Protein 8.1 g/dL (6.3-8.2) 07/27/17 21:26 Albumin 3.4 g/dL (3.9-5) L 07/27/17 21:26 Albumin/Globulin Ratio 0.7 % 07/27/17 21:26
--- NOTE | 2017-07-30 13:27 | Consultation ---
History of Present Illness Consult date: 07/30/17 Reason for consult: other (Abscess of right 3rd toe) - History of present illness History of present illness: 42 yo diabetic male with right 3rd toe infection. Past History Past Medical History: diabetes Medications and Allergies Allergies Allergy/AdvReac Type Severity Reaction Status Date / Time No Known Allergies Allergy Verified 07/28/17 02:16 Home Medications Medication Instructions Recorded Confirmed Last Taken Type No Known Home Medications [No 07/29/17 07/29/17 Unknown History Reported Home Medications] Active Meds: Active Medications Dextrose (D50w (25gm) Syringe) 50 ml IV PRN PRN PRN Reason: Hypoglycemia Vancomycin HCl 1,500 mg/ (Sodium Chloride) 515 mls @ 333.333 mls/hr IV Q12H CHARLES Last Admin: 07/30/17 01:15 Dose: 333.333 mls/hr Sodium Chloride (Nacl 0.9% 1000 Ml) 1,000 mls @ 125 mls/hr IV DIRECT CHARLES Last Admin: 07/30/17 13:09 Dose: 125 mls/hr Ampicillin Sodium/Sulbactam Sodium (Unasyn/Ns 3 Gm/100 Ml) 3 gm in 100 mls @ 200 mls/hr IV Q6HR CHARLES; Protocol Last Admin: 07/30/17 13:09 Dose: 200 mls/hr Insulin Human Lispro (Humalog) 0 unit SUB-Q ACHS CHARLES; Protocol Last Admin: 07/30/17 13:08 Dose: 2 unit Nicotine (Habitrol) 21 mg TD QDAY CHARLES Last Admin: 07/30/17 10:14 Dose: 21 mg Ondansetron HCl (Zofran) 4 mg IV Q4H PRN PRN Reason: N/V IF NPO AND NO IV ACCESS Oxycodone/Acetaminophen (Percocet 5/325) 1 tab PO Q6H PRN PRN Reason: Pain, Moderate (4-6) Last Admin: 07/29/17 18:05 Dose: 1 tab Vancomycin HCl (Vancomycin Pharmacy To Dose) 1 each IV PKCONSULT CHARLES; Protocol Review of Systems All systems: negative (none) Exam Vital Signs Temp Pulse Resp BP Pulse Ox 100.2 F H 77 16 126/83 98 07/27/17 20:16 07/27/17 20:16 07/27/17 20:16 07/27/17 20:16 07/27/17 20:16 - General physical appearance Positive: well developed, well nourished, no distress - Eyes Positive: PERRL, normal occular movement - ENT Positive: normal pinna, normal nares, normal mucosa, no hearing loss, no congestion - Neck Positive: no masses, no bruits, trachea midline, no venous distension - Respiratory Positive: normal expansion, normal respiratory effort, clear to auscultation - Cardiovascular Rhythm: regular Heart Sounds: Present: S1 & S2. Absent: rub, click - Extremities Extremity abnormal: other (There is pus draining from the medial and lateral aspects of the base of the right 3rd toe. The right foot is somewhat edematous. ) - Breasts Breasts: deferred - Abdomen Abdomen: Present: soft, bowel sounds normal. Absent: tender, distended Hernia: none - Genitourinary Male Genitourinary: deferred - Neurologic Neurologic: alert and oriented to time, place and person, motor strength and sensation are grossly intact - Psychiatric Psychiatric: appropriate mood/affect, intact judgment & insight Results - Labs 07/30/17 07:20 07/30/17 07:20 Abnormal lab results 07/29/17 07/29/17 07/30/17 Range/Units 16:30 21:25 07:20 MCV 83 L (84-94) fl MCH 27 L (28-32) pg RDW 12.8 L (13.2-15.2) % Potassium (3.6-5.0) mmol/L Creatinine (0.8-1.5) mg/dL Glucose (75-100) mg/dL POC Glucose 118 H 145 H (70-105) Calcium (8.4-10.2) mg/dL 07/30/17 07/30/17 Range/Units 07:20 11:56 MCV (84-94) fl MCH (28-32) pg RDW (13.2-15.2) % Potassium 3.5 L (3.6-5.0) mmol/L Creatinine 0.6 L (0.8-1.5) mg/dL Glucose 112 H (75-100) mg/dL POC Glucose 214 H (70-105) Calcium 8.2 L (8.4-10.2) mg/dL Diabetes panel 07/30/17 Range/Units 07:20 Sodium 144 (137-145) mmol/L Potassium 3.5 L (3.6-5.0) mmol/L Chloride 105.1 (98-107) mmol/L Carbon Dioxide 29 (22-30) mmol/L BUN 11 (9-20) mg/dL Creatinine 0.6 L (0.8-1.5) mg/dL Glucose 112 H (75-100) mg/dL Calcium 8.2 L (8.4-10.2) mg/dL Calcium panel 07/30/17 Range/Units 07:20 Calcium 8.2 L (8.4-10.2) mg/dL Pituitary panel 07/30/17 Range/Units 07:20 Sodium 144 (137-145) mmol/L Potassium 3.5 L (3.6-5.0) mmol/L Chloride 105.1 (98-107) mmol/L Carbon Dioxide 29 (22-30) mmol/L BUN 11 (9-20) mg/dL Creatinine 0.6 L (0.8-1.5) mg/dL Glucose 112 H (75-100) mg/dL Calcium 8.2 L (8.4-10.2) mg/dL Adrenal panel 07/30/17 Range/Units 07:20 Sodium 144 (137-145) mmol/L Potassium 3.5 L (3.6-5.0) mmol/L Chloride 105.1 (98-107) mmol/L Carbon Dioxide 29 (22-30) mmol/L BUN 11 (9-20) mg/dL Creatinine 0.6 L (0.8-1.5) mg/dL Glucose 112 H (75-100) mg/dL Calcium 8.2 L (8.4-10.2) mg/dL - Imaging Additional studies: CT of right foot and x-ray right foot reviewed. Assessment and Plan - Patient Problems (1) Diabetic foot ulcer Current Visit: Yes Status: Acute Qualifiers: Diabetic foot ulcer location: unspecified part of foot Diabetes mellitus type: type 1 Laterality: right Non-pressure ulcer stage: unspecified non- pressure ulcer stage Qualified Code(s): E10.621 - Type 1 diabetes mellitus with foot ulcer; L97.519 - Non-pressure chronic ulcer of other part of right foot with unspecified severity Plan to address problem: 1) Ray amputation of right 3rd toe tomorrow
--- NOTE | 2017-07-30 16:08 | Progress Note ---
Assessment and Plan Assessment: 1) Sepsis: better; etio. right foot infection 2) Right diabetic foot infection with cellulitis, possible abscess and osteomyelitis -XR foot showed irregularity in destructive changes of the proximal phalanx of the 3rd toe with moderate overlying soft tissue swelling and possible ulceration, concerning for osteomyelitis and cellulitis. Other areas of lytic changes and irregularity about the 1st, 2nd, and 5th toes with associated periostitis of the 2nd-4th metatarsals. Possible associated age indeterminate posttraumatic change of the 2nd metatarsal. -CT lower showed generalized edema around the foot suggesting cellulitis. Extensive osteomyelitis changes with cellulitis involving the entire 3rd toe as described. Additional cortical changes involving 1st, 2nd, and 5th toes as described. How much of this is on acute versus chronic basis is uncertain. Sclerotic changes involving much of the 2nd metatarsal with destructive changes of the 2nd metatarsophalangeal joint. How much of these findings are related to acute versus chronic osteomyelitis is uncertain. -CRP=4.4 Plan: -to the OR for 3rd ray amputation - appreciate Dr Friedman's input -please obtain deep wound cultures -arterial dopplers - pending -continue vancomycin and unasyn Jimenez Subjective Date of service: 07/30/17 Principal diagnosis: right foot infection Interval history: Feels better, no fever. Micro: blood cx 07/28 ngtd Abx: unasyn 07/28 vanco 07/28 Objective - Exam Narrative Exam: Alert in NAD NC AT [facility], clear OP Neck no LN Lungs CTA esperanza CV RRR Abd soft nt Ext extensive edema, skin sloughing right 3rd toe and mid foot - Constitutional Vitals: Vital Signs Temp Pulse Resp BP Pulse Ox 99.1 F 63 20 126/70 98 07/30/17 07:36 07/30/17 07:36 07/30/17 07:36 07/30/17 07:36 07/30/17 07:36 Temperature -Last 24 Hours Temperature 99.1 F Temperature 98.7 F - Labs CBC & Chem 7: 07/30/17 07:20 07/30/17 07:20 Labs: Abnormal lab results 07/29/17 07/29/17 07/30/17 Range/Units 16:30 21:25 07:20 MCV 83 L (84-94) fl MCH 27 L (28-32) pg RDW 12.8 L (13.2-15.2) % Potassium (3.6-5.0) mmol/L Creatinine (0.8-1.5) mg/dL Glucose (75-100) mg/dL POC Glucose 118 H 145 H (70-105) Calcium (8.4-10.2) mg/dL 07/30/17 07/30/17 Range/Units 07:20 11:56 MCV (84-94) fl MCH (28-32) pg RDW (13.2-15.2) % Potassium 3.5 L (3.6-5.0) mmol/L Creatinine 0.6 L (0.8-1.5) mg/dL Glucose 112 H (75-100) mg/dL POC Glucose 214 H (70-105) Calcium 8.2 L (8.4-10.2) mg/dL
[2017-07-31] MEDS ORDERED: NACL 0.9% IR ONE
[2017-07-31] MEDS: PERCOCET 5/325 PO PRN ×2 (00:26→18:39)
[2017-07-31] MEDS: VANCOMYCIN 1,500 MG in NACL 0.9% 500 ML 500 ML IV SCH ×2 (00:26→12:49)
[2017-07-31] MEDS: UNASYN/NS 3 GM/100 ML 3 GM/100 ML BAG IV SCH ×4 (00:28→18:40)
[2017-07-31] MEDS: NACL 0.9% 1000 ML 1,000 ML IV SCH ×2 (00:31→17:20)
[2017-07-31] MEDS: HumaLOG SUB-Q SCH ×3 (06:37→18:50)
[2017-07-31 07:49] LABS: Hematocrit 36.4 % (35.5-45.6); Hemoglobin 12.1 gm/dl (11.8-15.2); Mean Corpuscular HGB Conc 33 % (32-34); Mean Corpuscular Hemoglobin 28 pg (28-32); Mean Corpuscular Volume 84 fl (84-94); Platelet Count 240 K/mm3 (140-440); Red Blood Count 4.34 M/mm3 (3.65-5.03); Red Cell Distribution Width 12.4 % (13.2-15.2)
[2017-07-31 08:49] LABS: BUN/Creatinine Ratio 23; Blood Urea Nitrogen 14 mg/dL (9-20); Hemolysis Index 1
[2017-07-31] MEDS: HABITROL TD SCH (09:57)
[2017-07-31] MEDS ORDERED: DILAUDID IV PRN (11:47)
[2017-07-31] MEDS ORDERED: ZOFRAN IV PRN (11:47)
[2017-07-31] MEDS ORDERED: VERSED IV NR (12:00)
[2017-07-31] MEDS ORDERED: LACTATED RINGERS 1,000 ML IV SCH ×2 (12:00)
--- NOTE | 2017-07-31 13:41 | Progress Note ---
Assessment and Plan Mr. Pitts is 42 yo Icelandic speaking man with history of tobacco dependency and type 2 DM who presents with severe constant throbbing radiation up right foot pains that started about 2 days ago. He injured the foot a couple weeks ago on concrete. He has subjective chills and fevers. He denies cp, sob or any other symptoms. -Acute right foot osteomyelitis: For the patient on the right side to by wound care surgeon Dr. Friedman. Continue with IV vancomycin and Zosyn -Acute right foot cellulitis: Continue IV antibiotics consult wound care, and Infectious disease -Tobacco dependency: advised pt to stop, ordered nicotine patch -Hypotension with dehydration, improved: continue ivf -Hypokalemia: replace and repeat in am. Magnesium level -DVT prophylaxis: sq heparin Subjective Date of service: 07/31/17 Principal diagnosis: right foot infection Interval history: Patient seen and examined. Overnight reported by nursing staff. Still hasn't soaked dressing on the right foot. No fever. Laboratory data radiological data reviewed. Objective - Exam Narrative Exam: Constitutional: Well-nourished well-developed. In no distress Head: Normocephalic atraumatic Eyes: Pupils are equal round and reactive to light Nose: No enlarged turbinates, no septal deviation. Mouth: Moist mucous membranes. Neck: Supple no thyromegaly. No bruit. No JVD Heart: Regular rate and rhythm, S1-S2 abnormal. No rubs murmurs or gallop Lungs: Clear to auscultation bilaterally no rales or rhonchi Abdomen: Soft, nontender. Bowel sound are present. Extremities: Soaked dressing right foot. No cyanosis and no clubbing. Neuro: Alert oriented Oriented x3. No focal sensory or motor deficit. Skin: No rashes no hyperemic spots Psychiatry: Euthymic. Calm. - Constitutional Vitals: Vital Signs - 12hr 07/31/17 07:52 Temperature 98.8 F Pulse Rate 57 L Respiratory 20 Rate Blood Pressure 127/76 O2 Sat by Pulse 98 Oximetry - Labs CBC & Chem 7: 07/31/17 05:51 07/31/17 05:51 Labs: Abnormal lab results 07/30/17 07/30/17 07/31/17 Range/Units 17:05 22:02 05:51 RDW 12.4 L (13.2-15.2) % Potassium (3.6-5.0) mmol/L Chloride (98-107) mmol/L Creatinine (0.8-1.5) mg/dL Glucose (75-100) mg/dL POC Glucose 133 H 236 H (70-105) Calcium (8.4-10.2) mg/dL Magnesium (1.7-2.3) mg/dL 07/31/17 07/31/17 07/31/17 Range/Units 05:51 05:57 11:24 RDW (13.2-15.2) % Potassium 3.4 L (3.6-5.0) mmol/L Chloride 107.7 H (98-107) mmol/L Creatinine 0.6 L (0.8-1.5) mg/dL Glucose 152 H (75-100) mg/dL POC Glucose 136 H 128 H (70-105) Calcium 8.0 L (8.4-10.2) mg/dL Magnesium 1.50 L (1.7-2.3) mg/dL
[2017-07-31] MEDS ORDERED: DIPRIVAN 10 MG/ML IV ONE (14:01)
[2017-07-31] MEDS ORDERED: SUBLIMAZE ONE (14:17)
[2017-07-31] MEDS ORDERED: XYLOCAINE MPF 2% ONE (15:00)
--- NOTE | 2017-07-31 15:13 | Progress Note ---
Assessment and Plan Assessment: 1) Sepsis: better; etio. right foot infection 2) Right diabetic foot infection with cellulitis, possible abscess and osteomyelitis -XR foot showed irregularity in destructive changes of the proximal phalanx of the 3rd toe with moderate overlying soft tissue swelling and possible ulceration, concerning for osteomyelitis and cellulitis. Other areas of lytic changes and irregularity about the 1st, 2nd, and 5th toes with associated periostitis of the 2nd-4th metatarsals. Possible associated age indeterminate posttraumatic change of the 2nd metatarsal. -CT lower showed generalized edema around the foot suggesting cellulitis. Extensive osteomyelitis changes with cellulitis involving the entire 3rd toe as described. Additional cortical changes involving 1st, 2nd, and 5th toes as described. How much of this is on acute versus chronic basis is uncertain. Sclerotic changes involving much of the 2nd metatarsal with destructive changes of the 2nd metatarsophalangeal joint. How much of these findings are related to acute versus chronic osteomyelitis is uncertain. -CRP=4.4 Plan: -to the OR for 3rd ray amputation - appreciate Dr Friedman's input -please obtain deep wound cultures -arterial dopplers - pending -continue vancomycin and unasyn Jimenez Subjective Date of service: 07/31/17 Principal diagnosis: right foot infection Interval history: Feels better, no fever. Micro: blood cx 07/28 ngtd Abx: unasyn 07/28 vanco 07/28 Objective - Exam Narrative Exam: Alert in NAD NC AT [facility], clear OP Neck no LN Lungs CTA esperanza CV RRR Abd soft nt Ext extensive edema, skin sloughing right 3rd toe and mid foot - Constitutional Vitals: Vital Signs Temp Pulse Resp BP Pulse Ox 98.4 F 55 L 18 127/65 99 07/31/17 13:45 07/31/17 13:45 07/31/17 13:45 07/31/17 13:45 07/31/17 13:45 Temperature -Last 24 Hours Temperature 98.4 F Temperature 98.4 F Temperature 98.8 F Temperature 99.2 F Temperature 98.8 F - Labs CBC & Chem 7: 07/31/17 05:51 07/31/17 05:51 Labs: Abnormal lab results 07/30/17 07/30/17 07/31/17 Range/Units 17:05 22:02 05:51 RDW 12.4 L (13.2-15.2) % Potassium (3.6-5.0) mmol/L Chloride (98-107) mmol/L Creatinine (0.8-1.5) mg/dL Glucose (75-100) mg/dL POC Glucose 133 H 236 H (70-105) Calcium (8.4-10.2) mg/dL Magnesium (1.7-2.3) mg/dL 07/31/17 07/31/17 07/31/17 Range/Units 05:51 05:57 11:24 RDW (13.2-15.2) % Potassium 3.4 L (3.6-5.0) mmol/L Chloride 107.7 H (98-107) mmol/L Creatinine 0.6 L (0.8-1.5) mg/dL Glucose 152 H (75-100) mg/dL POC Glucose 136 H 128 H (70-105) Calcium 8.0 L (8.4-10.2) mg/dL Magnesium 1.50 L (1.7-2.3) mg/dL
--- NOTE | 2017-07-31 15:52 | Procedure Note ---
Date of procedure: 07/31/17 Pre-op diagnosis: 1) Right 3rd toe abscess and osteomyelitis of right 3rd toe Post-op diagnosis: same Procedure: Ray amputation of right 3rd toe Description of procedure: Pt was placed supine on the OR table. General anesthesia by LMA was administered. Pt's right foot was prepped and draped. The right 3rd toe was amputated through the MTP joint with the Bovie. Deep cultures of drained pus were obtained. Tendons were maximally retracted and transected. Periosteum was elevated off of the distal 3rd metatarsal bone. The 3rd metatarsal head was amputated with a bone cutter. Hemostasis was obtained with the Bovie. Wound was irrigated with warm saline. Wound was packed open with a dilute, Betadine moistened Kerlix roll followed by dry 4 X 4' s, Kerlix wrap and Coban. Pt tolerated the procedure well and was taken to PACU in stable condition. Anesthesia: other (LMA) Surgeon: CHARU MITCHELL Estimated blood loss: minimal Pathology: list (Right 3rd toe and metatarsal head) Specimen disposition: to lab Condition: stable Disposition: PACU
--- NOTE | 2017-07-31 15:55 | Anesthesia Day of Surgery ---
Anesthesia Day of Surgery - Day of Surgery Patient Examined: Yes Patient H&P Reviewed: Yes Patient is NPO: Yes
--- NOTE | 2017-07-31 15:56 | Post Anesthesia Evaluation ---
- Post Anesthesia Evaluation Patient Participated: Yes Airway Patent: Yes Stable Respiratory Function: Yes Nausea/Vomiting: No Temp > 96.8F: Yes Pain Manageable: Yes Adequeate Hydration: Yes Anesthesia Complications: No
--- NOTE | 2017-07-31 15:56 | Anesthesia Consultation ---
Anesthesia Consult and Med Hx Date of service: 07/31/17 - Airway Anesthetic Teeth Evaluation: Good ROM Head & Neck: Adequate Mental/Hyoid Distance: Adequate Mallampati Class: Class I Intubation Access Assessment: Good - Pulmonary Exam CTA: Yes - Cardiac Exam Cardiac Exam: RRR - Pre-Operative Health Status ASA Pre-Surgery Classification: ASA2 Proposed Anesthetic Plan: General - Pulmonary Hx Smoking: Yes
[2017-07-31] MEDS: VANCOMYCIN 1,250 MG in NACL 0.9% 250ML 250 ML IV SCH (22:04)
[2017-08-01] MEDS: UNASYN/NS 3 GM/100 ML 3 GM/100 ML BAG IV SCH ×3 (01:10→14:10)
[2017-08-01] MEDS: NACL 0.9% 1000 ML 1,000 ML IV SCH (02:11)
[2017-08-01] MEDS: HumaLOG SUB-Q SCH ×3 (02:11→12:50)
[2017-08-01] MEDS: VANCOMYCIN 1,250 MG in NACL 0.9% 250ML 250 ML IV SCH (05:58)
[2017-08-01] MEDS: PERCOCET 5/325 PO PRN ×2 (06:03→15:57)
--- NOTE | 2017-08-01 09:44 | Progress Note ---
Assessment and Plan Assessment: 1) Sepsis: resolved; etio. right foot infection 2) Right diabetic foot infection with cellulitis, possible abscess and osteomyelitis -XR foot showed irregularity in destructive changes of the proximal phalanx of the 3rd toe with moderate overlying soft tissue swelling and possible ulceration, concerning for osteomyelitis and cellulitis. Other areas of lytic changes and irregularity about the 1st, 2nd, and 5th toes with associated periostitis of the 2nd-4th metatarsals. Possible associated age indeterminate posttraumatic change of the 2nd metatarsal. -CT lower showed generalized edema around the foot suggesting cellulitis. Extensive osteomyelitis changes with cellulitis involving the entire 3rd toe as described. Additional cortical changes involving 1st, 2nd, and 5th toes as described. How much of this is on acute versus chronic basis is uncertain. Sclerotic changes involving much of the 2nd metatarsal with destructive changes of the 2nd metatarsophalangeal joint. How much of these findings are related to acute versus chronic osteomyelitis is uncertain. -CRP=4.4 -S/P #rd toe amputation Gram stain GPC Plan: -f/u OR cultures -arterial dopplers - done but reading pending -continue vancomycin and unasyn will inpatient -upon discharge will do keflex 500 mg PO QID and doxycycline 100 mg PO q12h total 14 days. Add doxycycline to cover MRSA since culture still pending. Keflex is free at [facility] -ID clinic f/u in 2-3 weeks OK to d/c home I am signing off Jimenez Subjective Date of service: 08/01/17 Principal diagnosis: right foot infection Interval history: Feels ok no fever. Micro: blood cx 07/28 ngtd OR culture 07/31 Gram stain +GPC Abx: unasyn 07/28 vanco 07/28 Objective - Exam Narrative Exam: Alert in NAD NC AT [facility], clear OP Neck no LN Lungs CTA esperanza CV RRR Abd soft nt Ext - surgical dressing covering right foot - Constitutional Vitals: Vital Signs Temp Pulse Resp BP Pulse Ox 99.1 F 64 20 112/63 97 08/01/17 07:59 08/01/17 07:59 08/01/17 07:59 08/01/17 07:59 08/01/17 07:59 Temperature -Last 24 Hours Temperature 99.1 F Temperature 98.9 F Temperature 98.7 F Temperature 98.4 F Temperature 98.4 F Temperature 98.4 F - Labs CBC & Chem 7: 07/31/17 05:51 07/31/17 05:51 Labs: Abnormal lab results 07/31/17 07/31/17 07/31/17 Range/Units 11:24 15:43 21:07 POC Glucose 128 H 112 H 279 H (70-105) 08/01/17 Range/Units 06:30 POC Glucose 164 H (70-105)
[2017-08-01] MEDS: HABITROL TD SCH (11:15)
--- NOTE | 2017-08-01 12:04 | Discharge Summary ---
Providers - Providers Date of Admission: 07/28/17 04:59 Date of discharge: 08/01/17 Attending physician: DURGA CAROLINA 07/28/17 12:05 Consult to Physician [CONS] Routine Comment: Consulting Provider: SONNY ORDAZ Physician Instructions: Reason For Exam: right foot cellulitis suspect Osteomyelitis 07/28/17 12:07 Consult to Wound/ET Nurse [CONS] Routine Reason For Exam: wound eval 07/28/17 15:29 Consult to Physician [CONS] Routine Comment: Consulting Provider: GABBY PATEL Physician Instructions: Reason For Exam: right foot osteomyelitis 07/30/17 11:42 Consult to Physician [CONS] Routine Comment: Consulting Provider: CHARU FRIEDMAN Physician Instructions: Reason For Exam: right diabetic foot infection, ?needs surgery Primary care physician: J[employer] COMPOSITOR Hospitalization Condition: Stable Hospital course: Mr. Pitts is 42 yo Chinese speaking man with history of tobacco dependency and type 2 DM who presents with severe constant throbbing radiation up right foot pains that started about 2 days ago. He injured the foot a couple weeks ago on concrete. He has subjective chills and fevers. He denies cp, sob or any other symptoms. Temp 100.2, WBC 11.3 * 3v Right foot xray impression: Irregularity in destructive changes of the proximal phalanx of the 3rd toe with moderate overlying soft tissue swelling and possible ulceration, concerning for osteomyelitis and cellulitis. Other areas of lytic changes and irregularity about the 1st, 2nd, and 5th toes with associated periostitis of the 2nd-4th metatarsals. Possible associated age indeterminate posttraumatic change of the 2nd metatarsal. Consider infectious/ inflammatory process, including arthropathy such as gout or other erosive/ proliferative arthropathy. However, cannot exclude destructive process such as osteomyelitis. Consider MRI for further characterization if there is continued clinical concern and if patient has no contraindication to MRI. Possible mild irregularity of the distal fibula, consider correlation with ankle radiographs. * CT lower right extremity with IV contrast IMPRESSION: Generalized edema around the foot suggesting cellulitis. No evidence of soft tissue abscess otherwise. Extensive osteomyelitis changes with cellulitis involving the entire 3rd toe as described. Additional cortical changes involving 1st, 2nd, and 5th toes as described. How much of this is on acute versus chronic basis is uncertain. Sclerotic changes involving much of the 2nd metatarsal with destructive changes of the 2nd metatarsophalangeal joint. How much of these findings are related to acute versus chronic osteomyelitis is uncertain. MRI of the foot is recommended for better evaluation for the extent of marrow edema. Calcaneal spurs noted. -Acute right foot osteomyelitis: Ortho evaluated, treat with iv abx, arterial doppler pending -Acute right foot cellulitis: consult wound care, and Infectious disease -Tobacco dependency: advised pt to stop, ordered nicotine patch -Hypotension with dehydration, improved: continue ivf -Hypokalemia: replace and repeat in am -DVT prophylaxis: sq heparin Ortho wants to observe on iv abx, will consult wound care Physician Arterial dopplers and venous ble doppler==>negative (the reports are combined) Date of procedure: 07/31/17 Pre-op diagnosis: 1) Right 3rd toe abscess and osteomyelitis of right 3rd toe Post-op diagnosis: same Procedure: Ray amputation of right 3rd toe Description of procedure: Pt was placed supine on the OR table. General anesthesia by LMA was administered. Pt's right foot was prepped and draped. The right 3rd toe was amputated through the MTP joint with the Bovie. Deep cultures of drained pus were obtained. Tendons were maximally retracted and transected. Periosteum was elevated off of the distal 3rd metatarsal bone. The 3rd metatarsal head was amputated with a bone cutter. Hemostasis was obtained with the Bovie. Wound was irrigated with warm saline. Wound was packed open with a dilute, Betadine moistened Kerlix roll followed by dry 4 X 4' s, Kerlix wrap and Coban. Pt tolerated the procedure well and was taken to PACU in stable condition. Anesthesia: other (LMA) Surgeon: CHARU FRIEDMAN Estimated blood loss: minimal Pathology: list (Right 3rd toe and metatarsal head) Specimen disposition: to lab Condition: stable Disposition: PACU Disposition: DC TO HOME OR SELFCARE Time spent for discharge: 32 mintues Core Measure Documentation - Palliative Care Palliative Care/ Comfort Measures: Not Applicable - Core Measures Any of the following diagnoses?: none - VTE Discharge Requirements Deep Vein Thrombosis/Pulmonary Embolism Present on Admission: No Has pt received <5 days of overlap therapy or INR<2.0: No Anticoagulant overlap therapy prescribed at discharge: No Contraindication No Overlap Therapy order at DC: Not Indicated Exam - Physical Exam Narrative exam: GEN: WDWN, NAD, Awake, Alert, Orientated x 3 HEENT: NCAT, EOMI, PERRL, OP Clear NECK: supple, no adenopathy, no thyromegaly, no JVD CVS/HEART: RRR, normal S1S2, pulses present bilaterally CHEST/LUNGS: CTA B, Symmetrical chest expansion, good air entry bilaterally GI/Abdomen: soft, NTND, good bowel sounds, no guarding or rebound /Bladder: no suprapubic tenderness, no CVA or paraspinal tenderness EXT/Skin: right foot is swollen, red, erythematous to mid calf, warm and tender with multiple toes with ulceration, purulent material MSK: FROM x 4 Neuro: CN 2-12 grossly intact, no new focal deficits Psych: calm - Constitutional Vitals: Temp Pulse Resp BP Pulse Ox 99.1 F 64 20 112/63 97 08/01/17 07:59 08/01/17 07:59 08/01/17 07:59 08/01/17 07:59 08/01/17 07:59 Plan Activity: other (no strenous activity until cleared by Dr. Friedman) Diet: low salt Wound: per your surgeon's advice Follow up with: PRIMARY CARE, [Primary Care Provider] - 3-5 Days CHARU FRIEDMAN MD [Staff Physician] - 7 Days SONNY ORDAZ MD [Staff Physician] - 7 Days Prescriptions: Cephalexin [Keflex] 500 mg PO Q12HR #28 cap Doxycycline [Vibramycin CAP] 100 mg PO Q12HR #28 capsule Nicotine [Habitrol] 21 mg TD QDAY #14 patch oxyCODONE /ACETAMINOPHEN [Percocet 5/325 mg] 1 tab PO Q6H PRN #15 tablet PRN Reason: Pain, Moderate (4-6)
--- NOTE | 2017-08-01 14:30 | Progress Note ---
Assessment and Plan - Patient Problems (1) Diabetic foot ulcer Current Visit: Yes Status: Acute Qualifiers: Diabetic foot ulcer location: unspecified part of foot Diabetes mellitus type: type 1 Laterality: right Non-pressure ulcer stage: unspecified non- pressure ulcer stage Qualified Code(s): E10.621 - Type 1 diabetes mellitus with foot ulcer; L97.519 - Non-pressure chronic ulcer of other part of right foot with unspecified severity Plan to address problem: 1) Can be discharged from my perspective. 2) Pt to be instructed in wound care or this can be performed by a HHN 3) F/u in my office in 10-14 days Subjective Date of service: 08/01/17 Patient Reports: Positive: no new complaints Objective Vital Signs - 12hr 08/01/17 07:59 Temperature 99.1 F Pulse Rate 64 Respiratory 20 Rate Blood Pressure 112/63 O2 Sat by Pulse 97 Oximetry - Musculoskeletal other (Right foot dressing is clean and dry.) - Labs 07/31/17 05:51 07/31/17 05:51
--- NOTE | 2017-08-01 14:33 | Vascular Lab Report ---
LOWER EXTREMITY VENOUS DUPLEX: REASON FOR EXAM: DVT. COMMENTS ON THE RIGHT: All veins visualized are freely compressible without evidence of internal echogenicity. Flow is spontaneous and phasic throughout. COMMENTS ON THE LEFT: All veins visualized are freely compressible without evidence of internal echogenicity. Flow is spontaneous and phasic throughout. IMPRESSION: No evidence of acute or chronic deep venous thrombosis in either lower extremity.
--- NOTE | 2017-08-01 14:43 | Vascular Lab Report ---
LOWER EXTREMITY ARTERIAL DUPLEX: REASON FOR EXAM: Peripheral arterial disease. COMMENTS ON THE RIGHT: Triphasic waveforms are seen proximally. Triphasic waveforms are seen distally. No significant velocity gradients are identified. No significant plaque is identified. Findings are consistent with normal perfusion. Findings are consistent with the ability to heal distal wounds. COMMENTS ON THE LEFT: Triphasic waveforms are seen proximally. Triphasic waveforms are seen distally. No significant velocity gradients are identified. No significant plaque is identified. Findings are consistent with normal perfusion. Findings are consistent with the ability to heal distal wounds. IMPRESSION: RIGHT: Essentially normal arterial flow. LEFT:Essentially normal arterial flow.
[2017-08-01 16:44] VITALS: BP 140/80
== END 2017-08-01 18:42 | disposition home health service (06) | DRG 854 ==
LOC: ED 19:25 → 3A 07-28 04:59
PROVIDERS: ADMIT Internal Medicine; ATTEND Internal Medicine
PROC: 3E0234Z Introduction of Serum, Toxoid and Vaccine into Muscle, Percutaneous Approach (ICD-10-PCS; 2017-07-29)
PROC: 0Y6T0Z1 Detachment at Right 3rd Toe, High, Open Approach (ICD-10-PCS; principal; 2017-07-31)
DX: A41.9 Sepsis, unspecified organism (principal); M86.171 Other acute osteomyelitis, right ankle and foot; L03.115 Cellulitis of right lower limb; L02.611 Cutaneous abscess of right foot; E11.9 Type 2 diabetes mellitus without complications; F17.210 Nicotine dependence, cigarettes, uncomplicated; E11.69 Type 2 diabetes mellitus with other specified complication; E86.0 Dehydration; I95.9 Hypotension, unspecified; E11.621 Type 2 diabetes mellitus with foot ulcer; L97.519 Non-pressure chronic ulcer of other part of right foot with unspecified severity; E87.6 Hypokalemia; Z82.49 Family history of ischemic heart disease and other diseases of the circulatory system; Z83.3 Family history of diabetes mellitus; Z23 Encounter for immunization
CPT/HCPCS: 36415; 80048; 80053; 80202; 82140; 82805; 82962; 83735; 85025; 85027; 86140; 87040; 87075; 87116; 88302; 88311; 90686; 90732; 93925; 93970; 96365; 96366; 99406; J0295; J1815; J1956; J2704; J3010; J3370; J7030; J7040; J7050; J7120; Q9967